=== PATIENT | female | born 1990 | race Caucasian/White ===

== ENCOUNTER 2022-04-13 19:51 | Emergency (ER) | payer OTHER ==
[~2022-04-13] VITALS: Ht 170.2 cm; Wt 49.9 kg
[2022-04-13] MEDS ORDERED: LORAZEPAM 1 MG TABLET PO ONE (20:30)
[2022-04-13 20:32] LABS: APPEARANCE,URINE CLEAR (CLEAR); BILIRUBIN,URINE NEGATIVE (NEGATIVE); COLOR,URINE YELLOW (YELLOW); GLUCOSE, URINE (UA) NEGATIVE (NEGATIVE); KETONES,URINE NEGATIVE (NEGATIVE); OCCULT BLOOD,URINE NEGATIVE (NEGATIVE); PROTEIN,URINE NEGATIVE (NEGATIVE); UROBILINOGEN,URINE 0.2 mg/dL (0.2-1.0)
[2022-04-13 20:33] LABS: LEUKOCYTE ESTERASE ,URINE NEGATIVE Leu/uL (NEGATIVE); NITRATE,URINE POSITIVE (NEGATIVE)
[2022-04-13 20:34] LABS: AMPHET/METH SCREEN,URINE NEGATIVE (NEGATIVE); BARBITURATE SCREEN, URINE NEGATIVE (NEGATIVE); BENZODIAZEPINES SCREEN,URINE NEGATIVE (NEGATIVE); CANNABINOID SCREEN,URINE NEGATIVE (NEGATIVE); COCAINE SCREEN,URINE POSITIVE (NEGATIVE); OPIATE SCREEN,URINE NEGATIVE (NEGATIVE); PHENCYCLIDINE SCREEN,URINE NEGATIVE (NEGATIVE)
[2022-04-13 20:41] LABS: CREATININE 0.7 mg/dL (0.5-1.5); POTASSIUM 3.6 mmol/L (3.5-5.1)
[2022-04-13 20:50] LABS: ALBUMIN 3.6 g/dL (3.5-5.0); TOTAL PROTEIN, SERUM 6.8 g/dL (6.0-8.3)
[2022-04-13 20:58] LABS: BASOPHILS % (AUTO) 0.5 % (0.0-5.0); EOSINOPHILS % (AUTO) 5.6 % (0.0-8.0); HEMATOCRIT 40.6 % (36-48); LYMPHOCYTES % (AUTO) 37.3 % (21.0-51.0); MEAN CORPUSCULAR HEMOGLOBIN 32.9 pg (27.0-33.0); MEAN CORPUSCULAR HGB CONC 35.2 g/dL (32.0-36.0); MEAN CORPUSCULAR VOLUME 93.3 fL (79-99); MONOCYTES % (AUTO) 9.2 % (3.0-13.0); NEUTROPHILS % (AUTO) 47.2 % (40.0-77.0); PLATELET COUNT (AUTO) 249 K/uL (130-400); RED BLOOD CELL COUNT(AUTO) 4.35 MIL/uL (4.00-5.50); RED CELL DISTRIBUTION WIDTH 12.1 % (11.0-15.5); WHITE BLOOD COUNT (AUTO) 8.4 K/uL (4.8-10.8)
[2022-04-13 21:06] LABS: BACTERIA,URINE Few /HPF (None Seen); RBC,URINE 0-1 /HPF (0-1); SQUAMOUS EPITHELIAL CELL,UR Few /HPF (0-2); WBC,URINE 0-1 /HPF (0-1)
[2022-04-13] MEDS ORDERED: CEFTRIAXONE 1G VIAL IM ONE (21:30)
[2022-04-13] MEDS ORDERED: CEPH500B PO (21:38)
[2022-04-13 22:07] VITALS: BP 121/80
== END 2022-04-13 22:07 | disposition home or self-care (01) ==
LOC: EDH 19:51
DX: N39.0 Urinary tract infection, site not specified (principal); F41.9 Anxiety disorder, unspecified; F14.10 Cocaine abuse, uncomplicated; R07.89 Other chest pain; F17.200 Nicotine dependence, unspecified, uncomplicated
CPT/HCPCS: 99284; 84484; 80053; 80305; 85025; 87077; 87088; 87186; 36415; 96372; 93005; 81001; J0696